=== PATIENT | female | born 1960 | race Caucasian/White ===

== ENCOUNTER → 2017-10-18 | Outpatient (CLI) | payer BC ==
[~2017-10-18] MED LIST: CEF300 PO; ESTR1PAT66 TD; LEVO-85 PO; METH4TAB66 PO; SULF-198 PO; SUMA50TA34 PO; ZOLP-1 PO
== END ==
LOC: LAB 15:15
PROVIDERS: ATTEND Otolaryngology
DX: J32.9 Chronic sinusitis, unspecified (principal); A49.01 Methicillin susceptible Staphylococcus aureus infection, unspecified site
CPT/HCPCS: 87071; 87077; 87186